=== PATIENT | male | born 1995 | race Caucasian/White ===

== ENCOUNTER 2016-08-15 13:59 | Emergency (ER) | payer OTHER ==
--- NOTE | 2016-08-15 14:18 | ED CLINICAL REPORT ---
Clinical Report - Physicians/Mid Levels [facility] [address] [place] [address] 08/15/2016 13:59 Patient: WILMAR MCGILL Time Seen: 1440jun 2016. Arrived- By private vehicle. Historian- patient. HISTORY OF PRESENT ILLNESS Chief Complaint: no symtpoms. This started 3 days. It is gone now. Is now gone. (patient has no symptoms, 3 days ago, while doing drill had some left-sided abdominal pain radiating to his car, was seen at the time, diagnosed with a reducible hernia. Patient denies any pain, however was asked to come and seek care. Patient does not have a primary care provider, who takes his insurance, [employer]. Patient has not called [employer] this time. Denies any pain currently. Denies any diarrhea or emesis.). Similar symptoms previously: None. REVIEW OF SYSTEMS No fever, sore throat, cough, chest pain or nausea. No diarrhea, chills, skin rash, headache or blackouts. No difficulty with ambulation. All systems otherwise negative, except as recorded above. PAST HISTORY Problems: Near Syncope. Immunizations. Additional Surgeries: Collar Bone Repair. Medications: None. Allergies: No Known Drug Allergy. SOCIAL HISTORY Never smoker. No alcohol use or drug use. ADDITIONAL NOTES The nursing notes have been reviewed. PHYSICAL EXAM Vital Signs: 08/15/2016 14:11 BP: 118/58. HR: 69. RR: 18. O2 saturation: 98%. Temp: 98.1 F. Pain level now: 0/10. Eyes: Eyes normal inspection. ENT: Ears normal. Neck: Normal inspection. CVS: Normal heart rate and rhythm. Heart sounds normal. Respiratory: No respiratory distress. Breath sounds normal. No accessory muscle use. Abdomen: Soft. No mass. No distention. Back: Normal inspection. No CVA tenderness. Skin: Skin warm. Normal skin color. Neuro: Oriented X 3. PROGRESS AND PROCEDURES Course of Care: patient has no pain. Abdomen is soft nontender. He has no complaints, patient understands the need to establish primary care, however has no emergent need for such. He describes a hernia previously, which has not bothered him over the last 2 days. Denies any injury or trauma. 08/15/2016 14:11 BP: 118/58. HR: 69. RR: 18. O2 saturation: 98%. Temp: 98.1 F. Pain level now: 0/10. Patient is stable. Physical exam findings are improved. Symptoms better. Patient/family counseled. Disposition: Discharged. Condition: good. CLINICAL IMPRESSION Reducible ventral hernia. Normal Adult exam in ER. INSTRUCTIONS (call [facility] to establish primary care). (Electronically signed by Dorene Vance P.A.-C 08/15/2016 14:57)
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
--- NOTE | 2016-08-15 14:18 | ED CLINICAL REPORT ---
Clinical Report - Physicians/Mid Levels [facility] [address] [place] [address] 08/15/2016 13:59 Patient: WILMAR MCGILL Time Seen: 1440jun 2016. Arrived- By private vehicle. Historian- patient. HISTORY OF PRESENT ILLNESS Chief Complaint: no symtpoms. This started 3 days. It is gone now. Is now gone. (patient has no symptoms, 3 days ago, while doing drill had some left-sided abdominal pain radiating to his car, was seen at the time, diagnosed with a reducible hernia. Patient denies any pain, however was asked to come and seek care. Patient does not have a primary care provider, who takes his insurance, [employer]. Patient has not called [employer] this time. Denies any pain currently. Denies any diarrhea or emesis.). Similar symptoms previously: None. REVIEW OF SYSTEMS No fever, sore throat, cough, chest pain or nausea. No diarrhea, chills, skin rash, headache or blackouts. No difficulty with ambulation. All systems otherwise negative, except as recorded above. PAST HISTORY Problems: Near Syncope. Immunizations. Additional Surgeries: Collar Bone Repair. Medications: None. Allergies: No Known Drug Allergy. SOCIAL HISTORY Never smoker. No alcohol use or drug use. ADDITIONAL NOTES The nursing notes have been reviewed. PHYSICAL EXAM Vital Signs: 08/15/2016 14:11 BP: 118/58. HR: 69. RR: 18. O2 saturation: 98%. Temp: 98.1 F. Pain level now: 0/10. Eyes: Eyes normal inspection. ENT: Ears normal. Neck: Normal inspection. CVS: Normal heart rate and rhythm. Heart sounds normal. Respiratory: No respiratory distress. Breath sounds normal. No accessory muscle use. Abdomen: Soft. No mass. No distention. Back: Normal inspection. No CVA tenderness. Skin: Skin warm. Normal skin color. Neuro: Oriented X 3. PROGRESS AND PROCEDURES Course of Care: patient has no pain. Abdomen is soft nontender. He has no complaints, patient understands the need to establish primary care, however has no emergent need for such. He describes a hernia previously, which has not bothered him over the last 2 days. Denies any injury or trauma. 08/15/2016 14:11 BP: 118/58. HR: 69. RR: 18. O2 saturation: 98%. Temp: 98.1 F. Pain level now: 0/10. Patient is stable. Physical exam findings are improved. Symptoms better. Patient/family counseled. Disposition: Discharged. Condition: good. CLINICAL IMPRESSION Reducible ventral hernia. Normal Adult exam in ER. INSTRUCTIONS (call [facility] to establish primary care). (Electronically signed by Dorene Vance P.A.-C 08/15/2016 14:57)
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
--- NOTE | 2016-08-15 14:58 | ED DISCHARGE INSTRUCTIONS ---
Patient: WILMAR MCGILL General Instructions [facility] VisitID: [id number] [place] [address] 20y, M Registration Date/Time: 08/15/2016 Reducible ventral hernia. Normal Adult exam in ER. INSTRUCTIONS (call to establish primary care). ADDITIONAL INFORMATION Hernia [Adult] A hernia is a bulge of the intestines or surrounding tissues through a tear in the muscle of the abdomen or groin. This may occur as a result of excessive coughing, heavy lifting or being overweight. It can also occur at the site of prior surgery. When a hernia first appears it may be painful due to stretching and tearing of the muscle fibers. When you lie down, the bulge should reduce in size or disappear completely. If it does not, and you are unable to flatten it with your hand, medical attention is needed at once. Home Care: Avoid heavy lifting and straining or any activities that cause pain in the hernia. Follow Up with your physician as directed by our staff. Get Prompt Medical Attention if any of the following occur: Increasing size of the hernia Increasing pain in the hernia A hernia that does not get smaller when you lie down Hardening of the hernia Abdominal swelling, fever or repeated vomiting Pain moves to the lower right abdomen (just below the waistline) or spreads to the back Hernia [Adult] A hernia is a bulge of the intestines or surrounding tissues through a tear in the muscle of the abdomen or groin. This may occur as a result of excessive coughing, heavy lifting or being overweight. It can also occur at the site of prior surgery. When a hernia first appears it may be painful due to stretching and tearing of the muscle fibers. When you lie down, the bulge should reduce in size or disappear completely. If it does not, and you are unable to flatten it with your hand, medical attention is needed at once. Home Care: Avoid heavy lifting and straining or any activities that cause pain in the hernia. Follow Up with your physician as directed by our staff. Get Prompt Medical Attention if any of the following occur: Increasing size of the hernia Increasing pain in the hernia A hernia that does not get smaller when you lie down Hardening of the hernia Abdominal swelling, fever or repeated vomiting Pain moves to the lower right abdomen (just below the waistline) or spreads to the back You have been given the following additional information: Hernia (Inguinal, Ventral, Umbilical) Hernia (Inguinal, Ventral, Umbilical) (Electronically signed by Dorene Vance P.A.-C 08/15/2016 14:57)
--- NOTE | 2016-08-15 14:58 | ED MED RECONCILIATION SUMMARY ---
Patient: WILMAR MCGILL Medication Reconciliation Report [facility] VisitID: [id number] [address] [place] [address] 20y, M Registration Date/Time: 08/15/2016 Weight: 63.5 kg Height/Length: 73 in. BMI: 18.5 ALLERGIES: No Known Drug Allergy The patient's Home Medications are listed below: NONE. The source(s) of the original Home Medication information: patient The following Medications were given to the patient in the Emergency Department: None. The following Medications were prescribed to the patient: None.
--- NOTE | 2016-08-15 14:58 | ED MAR SUMMARY ---
..... Medication Administration Record [facility] [address] [place], [place] [id number] Patient: WILMAR MCGILL Visit ID: [id number] 20y, M Weight: 63.5 kg Height/Length: 73 in BMI: 18.5 ALLERGIES: No Known Drug Allergy
--- NOTE | 2016-08-15 14:58 | ED MAR SUMMARY ---
..... Medication Administration Record [facility] [address] [place], [place] [id number] Patient: WILMAR MCGILL Visit ID: [id number] 20y, M Weight: 63.5 kg Height/Length: 73 in BMI: 18.5 ALLERGIES: No Known Drug Allergy
--- NOTE | 2016-08-15 14:58 | ED DISCHARGE INSTRUCTIONS ---
Patient: WILMAR MCGILL General Instructions [facility] VisitID: [id number] [place] [address] 20y, M Registration Date/Time: 08/15/2016 Reducible ventral hernia. Normal Adult exam in ER. INSTRUCTIONS (call to establish primary care). ADDITIONAL INFORMATION Hernia [Adult] A hernia is a bulge of the intestines or surrounding tissues through a tear in the muscle of the abdomen or groin. This may occur as a result of excessive coughing, heavy lifting or being overweight. It can also occur at the site of prior surgery. When a hernia first appears it may be painful due to stretching and tearing of the muscle fibers. When you lie down, the bulge should reduce in size or disappear completely. If it does not, and you are unable to flatten it with your hand, medical attention is needed at once. Home Care: Avoid heavy lifting and straining or any activities that cause pain in the hernia. Follow Up with your physician as directed by our staff. Get Prompt Medical Attention if any of the following occur: Increasing size of the hernia Increasing pain in the hernia A hernia that does not get smaller when you lie down Hardening of the hernia Abdominal swelling, fever or repeated vomiting Pain moves to the lower right abdomen (just below the waistline) or spreads to the back Hernia [Adult] A hernia is a bulge of the intestines or surrounding tissues through a tear in the muscle of the abdomen or groin. This may occur as a result of excessive coughing, heavy lifting or being overweight. It can also occur at the site of prior surgery. When a hernia first appears it may be painful due to stretching and tearing of the muscle fibers. When you lie down, the bulge should reduce in size or disappear completely. If it does not, and you are unable to flatten it with your hand, medical attention is needed at once. Home Care: Avoid heavy lifting and straining or any activities that cause pain in the hernia. Follow Up with your physician as directed by our staff. Get Prompt Medical Attention if any of the following occur: Increasing size of the hernia Increasing pain in the hernia A hernia that does not get smaller when you lie down Hardening of the hernia Abdominal swelling, fever or repeated vomiting Pain moves to the lower right abdomen (just below the waistline) or spreads to the back You have been given the following additional information: Hernia (Inguinal, Ventral, Umbilical) Hernia (Inguinal, Ventral, Umbilical) (Electronically signed by Dorene Vance P.A.-C 08/15/2016 14:57)
--- NOTE | 2016-08-15 14:58 | ED MED RECONCILIATION SUMMARY ---
Patient: WILMAR MCGILL Medication Reconciliation Report [facility] VisitID: [id number] [address] [place] [address] 20y, M Registration Date/Time: 08/15/2016 Weight: 63.5 kg Height/Length: 73 in. BMI: 18.5 ALLERGIES: No Known Drug Allergy The patient's Home Medications are listed below: NONE. The source(s) of the original Home Medication information: patient The following Medications were given to the patient in the Emergency Department: None. The following Medications were prescribed to the patient: None.
== END 2016-08-15 14:25 | disposition home or self-care (01) ==
LOC: ED SRH 13:59
DX: K43.9 Ventral hernia without obstruction or gangrene (principal)